=== PATIENT | male | born 1980 | race Caucasian/White ===

== ENCOUNTER 2018-04-05 17:29 | Emergency (ER) | payer OTHER ==
[~2018-04-05] VITALS: Ht 177.8 cm; Wt 65.8 kg
[~2018-04-05 17:29] MED LIST: BENTYL 20 MG TA20 M1 PO; FLEXERIL PO; HYDROCODONE-AP1 EAC6 PO; MEDROLDOSEPACK PO; ZOFRAN4 MG PO
[2018-04-05 17:57] LABS: ABSOLUTE BASOPHILS 0.1 thou/uL (0.0-0.2); ABSOLUTE EOSINOPHILS 0.3 thou/uL (0.0-0.7); ABSOLUTE LYMPHOCYTES 2.8 thou/uL (0.8-5.3); ABSOLUTE MONOCYTES 0.5 thou/uL (0.0-1.2); ABSOLUTE NEUTROPHILS 5.5 thou/uL (1.6-8.1); EOSINOPHILS 2.9 %; HEMATOCRIT 42.3 % (42.0-52.0); HEMOGLOBIN 14.7 gm/dL (14.0-18.0); LYMPHOCYTES 30.9 %; MCH 32.2 pg (26.0-34.0); MCHC 34.7 g/dL (28.0-37.0); MCV 92.8 fL (80.0-100.0); MONOCYTES 5.4 %; MPV 7.2 fl. (7.2-11.1); NUCLEATED RBCS 0 /100WBC; PLATELET COUNT* 249 thou/uL (150-400); POLYS 59.8 %; RBC 4.56 mil/uL (4.50-6.00); RDW-CV 13.7 % (10.5-14.5); WBC 9.2 thou/uL (4.0-11.0)
[2018-04-05 18:11] LABS: ANION GAP 11 mmol/L (7-16); BUN 13 mg/dL (7-18); CALCIUM 8.5 mg/dL (8.5-10.1); CHLORIDE 104 mmol/L (98-107); CO2 25 mmol/L (21-32); CREATININE 0.8 mg/dL (0.6-1.3); GLUCOSE 110 mg/dL (70-99); POTASSIUM 3.3 mmol/L (3.5-5.1); SODIUM 140 mmol/L (136-145)
[2018-04-05 18:24] LABS: ALBUMIN 3.9 g/dL (3.4-5.0); ALKALINE PHOSPHATASE 61 U/L (46-116); SGOT 14 U/L (15-37); SGPT 17 U/L (30-65); TOTAL BILIRUBIN 0.4 mg/dL (<0.1-1.0); TOTAL PROTEIN 6.9 g/dL (6.4-8.2); TROPONIN-I LEVEL <0.06 ng/mL (<0.06)
[2018-04-05] MEDS ORDERED: TORADOL 10 MG T10 MG PO (18:45)
[2018-04-05] MEDS ORDERED: FLEXERIL PO (18:45)
[2018-04-05 18:51] VITALS: BP 100/72
--- NOTE | 2018-04-06 11:04 | EKG ---
[place] [address] ELECTROCARDIOGRAM REPORT Name: GALLO WALLER Room: [facility]#: [id number] Admission: 04/05/18 Attend Phys: Discharge: 04/05/18 Date of : 84 Report #: [id number] THIS REPORT FOR: //name// [facility] ED Test Date: 2018-04-05 Test Time: 17:55:06 Pat Name: GALLO WALLER Department: Room: Gender: [employer] Project Manager: Rosita PENDLETON : 1980 Requested By: Glenis Serrano Order Number: [id number] MD: Riccardo Wayne Measurements Intervals [place] Rate: 69 P: 59 OR: 136 QRS: 78 QRSD: 76 T: 48 QT: 381 QTc: 408 Interpretive Statements Sinus rhythm septal infarct, age indeterminate No previous ECG available for comparison Electronically Signed On 04-06-2018 11:04:22 CDT by Riccardo Wayne [email or web address] <ELECTRONICALLY SIGNED> By: Riccardo Wayne MD, [facility] 04/06/18 1104 1755 1755 Riccardo Wayne MD, FACC /EPI
== END 2018-04-05 18:52 | disposition home or self-care (01) ==
LOC: M.ERS 17:29
PROVIDERS: Nurse Practitioner Family
DX: S29.012A Strain of muscle and tendon of back wall of thorax, initial encounter (principal); F17.200 Nicotine dependence, unspecified, uncomplicated; Z91.013 Allergy to seafood; X50.1XXA Overexertion from prolonged static or awkward postures, initial encounter; Y93.89 Activity, other specified; Y92.89 Other specified places as the place of occurrence of the external cause; Y99.8 Other external cause status